=== PATIENT | male | born 1975 | race Caucasian/White ===

== ENCOUNTER 2018-07-08 07:45 | Inpatient (IN) | payer OTHER ==
[~2018-07-08] VITALS: Ht 152.4 cm; Wt 75.3 kg
[~2018-07-08 07:45] MED LIST: CIPRO500 MG PO; ULTRACET PO; ZANTAC300 MG PO
[2018-07-08] MEDS ORDERED: LIPITOR20 MG PO (09:30)
[2018-07-08] MEDS ORDERED: LEVO-T25 MCG PO (09:30)
[2018-07-19] MEDS ORDERED: TRAMADOL HCL50 MG PO (10:50)
[2018-07-19] MEDS ORDERED: TYLENOL EXTRA500 MG PO (10:50)
[2018-07-19] MEDS ORDERED: NEURONTIN600 MG PO (10:50)
[2018-07-19] MEDS ORDERED: MIRALAX17 GM PO (10:50)
== END 2018-07-19 12:44 | disposition home or self-care (01) | DRG 337 ==
LOC: O/R 07-16 05:53 → SURG 07-16 05:53 → SURH 07-16 07:45 → SURG 07-16 15:41
PROVIDERS: ADMIT Surgery
PROC: 0WUF0JZ Supplement Abdominal Wall with Synthetic Substitute, Open Approach (ICD-10-PCS; 2018-07-16)
PROC: 0WUF0JZ Supplement Abdominal Wall with Synthetic Substitute, Open Approach (ICD-10-PCS; 2018-07-16)
PROC: 0KXL0Z6 Transfer Left Abdomen Muscle, Transverse Rectus Abdominis Myocutaneous Flap, Open Approach (ICD-10-PCS; 2018-07-16)
PROC: 0KXK0Z6 Transfer Right Abdomen Muscle, Transverse Rectus Abdominis Myocutaneous Flap, Open Approach (ICD-10-PCS; 2018-07-16)
PROC: 0DNW0ZZ Release Peritoneum, Open Approach (ICD-10-PCS; principal; 2018-07-16 09:30)
DX: K43.0 Incisional hernia with obstruction, without gangrene (principal); K42.0 Umbilical hernia with obstruction, without gangrene; K66.0 Peritoneal adhesions (postprocedural) (postinfection); D58.0 Hereditary spherocytosis; E78.49 Other hyperlipidemia; E03.8 Other specified hypothyroidism; E55.9 Vitamin D deficiency, unspecified; Z90.81 Acquired absence of spleen